=== PATIENT | female | born 1965 | race Caucasian/White ===

== ENCOUNTER → 2016-10-19 | Outpatient (CLI) | payer BC ==
[~2016-10-19] MED LIST: LOVAZA1 GM PO; PROBIOTIC1 EAC1 PO; THERAGRAN-M1 TAB PO; VITAMIN C500 M1 PO
== END | disposition disaster alternative care site (69) ==
LOC: GRAD 10:03
DX: G44.309 Post-traumatic headache, unspecified, not intractable (principal); M54.2 Cervicalgia

== ENCOUNTER → 2016-11-16 | Outpatient (CLI) | payer BC | END | disposition disaster alternative care site (69) | LOC: GRAD 12:30 | DX: S82.142A Displaced bicondylar fracture of left tibia, initial encounter for closed fracture (principal); X58.XXXA Exposure to other specified factors, initial encounter ==